=== PATIENT | female | born 1945 | race Two or more races ===

== ENCOUNTER 2024-06-12 14:33 | Inpatient (IN) | payer OTHER ==
[~2024-06-12] VITALS: Ht 152.4 cm; Wt 56.7 kg
--- NOTE | 2024-06-12 14:39 | NUR ---
PACIENTE FEMENINA ALERTA Y ORIENTADA X3, REFIERE DOLOR EN LA ESPALDA EN GARCIA LADO JANNA ES KAYLAH Y [place] AL ORINAR.
--- NOTE | 2024-06-12 15:10 | NUR ---
PACIENTE EVALUADA POR QUIEN ORDENA [place] MEDICO, RN PORTIA EDUCA ACERCA DEL MISMO Y REFIERE ENTENDER. SE CANALIZA Y COLECTAN MUESTRAS DE LABORATORIO MEDIANTE MEDIDAS ASEPTICAS. SE ADMINISTRAN MEDICAMENTOS FADI ORDEN MEDICA.
[2024-06-12] MEDS ORDERED: ONDANSETRON HCL 2 MG/ML VIAL ONE (15:15)
[2024-06-12] MEDS ORDERED: CIPROFLOXACIN IN 5 % DEXTROSE 400 MG/200 ML PIGGYBAG IV ONE (15:15)
[2024-06-12] MEDS ORDERED: ONDANSETRON HCL 2 MG/ML VIAL IV ONE (15:15)
[2024-06-12] MEDS ORDERED: KETOROLAC TROMETHAMINE 60 MG VIAL IM ONE ×2 (15:15)
[2024-06-12] MEDS ORDERED: TAMSULOSIN HCL 0.4 MG CAP PO ONE ×2 (15:15)
[2024-06-12 15:50] LABS: URINE APPEARANCE Turbid; URINE BILIRRUBIN Small (NEGATIVE); URINE BLOOD Small; URINE COLOR Red; URINE GLUCOSE Negative (NEGATIVE); URINE KETONE Negative (NEGATIVE); URINE LEUKOCYTE Large; URINE NITRATE Positive
[2024-06-12 15:52] LABS: HEMATOCRIT 43.6 % (36.0-45.00); HEMOGLOBIN 14.5 g/dL (12.0-15.00); MEAN CELL VOLUME 88.2 fL (80.00-100.00); MEAN CORPUSCULAR HEMOGLOBIN 29.3 pg (27.00-32.0); MEAN CORPUSCULAR HGB CONC 33.2 g/dl (32.0-36.0); PLATELET COUNT 279 K/uL (150-450); RED BLOOD COUNT 4.94 M/uL (4.00-6.00); RED CELL DISTRIBUTION WIDTH 13.5 % (11.5-14.5)
[2024-06-12 15:55] LABS: URINE EPITHELIAL CELLS 20.5 uL (0.0-38.8); URINE WBC 71.7 uL (0.0-23.2)
[2024-06-12 16:03] LABS: INR 0.97; PARTIAL THROMBOPLASTIN TIME 22.8 SECONDS (22.0-34.0); PROTHROMBIN TIME 10.6 SECONDS (9.0-11.5)
[2024-06-12 16:08] LABS: ALBUMIN 4.1 gm/dL (3.4-5.0); BILIRUBIN TOTAL 0.9 mg/dL (0.3-1.2); CALCIUM 10.5 mg/dL (8.5-10.1); CREATININE SERUM 0.87 mg/dL (0.55-1.02); GFR 62.81; GLOBULINA 3.7 G/DL (2.4-3.5); POTASSIUM 4.04 mEq/L (3.5-5.1); TOTAL PROTEIN 7.8 gm/dL (6.4-8.2)
[2024-06-12 16:12] LABS: URINE BACTERIA > 9821.5 uL (0.0-1933); URINE PROTEIN 100 (NEGATIVE); URINE RBC > 10558.9 uL (0.0-20.8)
[2024-06-12] MEDS ORDERED: CIPROFLOXACIN IN 5 % DEXTROSE 400 MG/200 ML PIGGYBAG IV STA (17:31)
[2024-06-12] MEDS ORDERED: ONDANSETRON HCL 4 MG in 0.9 % SODIUM CHLORIDE 50 ML IV PRN (18:30)
[2024-06-12] MEDS ORDERED: 0.9 % SODIUM CHLORIDE 1,000 ML IV SCH (18:30)
[2024-06-12] MEDS ORDERED: ACETAMINOPHEN 325 MG TABLET PO PRN (18:30)
[2024-06-12] MEDS ORDERED: KETOROLAC TROMETHAMINE 30 MG VIAL IU PRN (18:45)
[2024-06-12 20:04] VITALS: BP 162/58; O2SAT 100
[2024-06-13 00:31] VITALS: BP 118/64
[2024-06-13] MEDS ORDERED: ACETAMINOPHEN 500 MG GEL..CAP PO PRN (06:30)
[2024-06-13 08:53] VITALS: BP 145/50; O2SAT 97
[2024-06-13] MEDS ORDERED: levoFLOXacin IN DEXTROSE 5 % 150 ML IV SCH (09:00)
[2024-06-13 17:20] VITALS: BP 160/71
[2024-06-13] MEDS ORDERED: MIDAZOLAM HCL 2 MG/2 ML VIAL IV PUSH ONE (18:15)
[2024-06-13] MEDS ORDERED: fentaNYL CITRATE 50 MCG/ML AMPUL IV PUSH ONE (18:15)
[2024-06-14 02:16] VITALS: BP 112/50; O2SAT 99
[2024-06-14 08:00] VITALS: BP 128/56
[2024-06-14] MEDS ORDERED: SULFAMETHOXAZOLE/TRIMETHOPRIM DS 1 TAB PO NR (11:00)
[2024-06-14 17:44] VITALS: BP 147/71
[2024-06-14] MEDS ORDERED: SULFAMETHOXAZOLE/TRIMETHOPRIM DS 1 TAB PO SCH (21:00)
[2024-06-15 01:00] VITALS: BP 132/78
[2024-06-15 08:19] VITALS: BP 170/75
== END 2024-06-15 13:22 | disposition home or self-care (01) | DRG 690 ==
LOC: ER 14:35 → MEDJ 18:52
PROVIDERS: General Practice; ADMIT Internal Medicine; ATTEND Internal Medicine
PROC: BW21YZZ Computerized Tomography (CT Scan) of Abdomen and Pelvis using Other Contrast (ICD-10-PCS; 2024-06-12)
PROC: 0T913ZX Drainage of Left Kidney, Percutaneous Approach, Diagnostic (ICD-10-PCS; principal; 2024-06-13)
DX: N39.0 Urinary tract infection, site not specified (principal); N13.30 Unspecified hydronephrosis; D49.512 Neoplasm of unspecified behavior of left kidney